=== PATIENT | female | born 1965 | race Caucasian/White ===

== ENCOUNTER → 2024-01-17 08:01 | Outpatient (BNVA) | payer OTHER, SELFPAY | PROVIDERS: PCP Family Medicine; Visit Provider Nurse Practitioner Family | DX: R53.83 Other fatigue (principal) | CPT/HCPCS: 80053; 83036; 84443; 85025 ==

== ENCOUNTER 2024-07-17 12:43 | Outpatient (CLI) | payer OTHER, SELFPAY ==
--- NOTE | 2024-07-17 13:00 | MM_ITS ---
WS: [id number] Bilateral screening 3D tomosynthesis digital mammogram, 07/17/2024 1:00 PM Clinical Data: Z12.31 - Encounter for screening mammogram for malignant ... Comparison: 06/22/2022 Findings: No spiculated masses or clustered calcifications are seen. There are no secondary signs of carcinoma . MM/MM scr BI tomosynthesis 14020 Impression: Negative bilateral mammogram unchanged. Recommend annual screening mammograms. BIRADS: 1 - Negative. FOLLOW UP: 1 Year Follow-up DENSITY: There are scattered areas of fibroglandular density. The CAD food and beverage checker was used
== END 2024-07-17 12:44 | disposition home or self-care (01) ==
LOC: RAD 12:44
PROVIDERS: PCP Family Medicine; Visit Provider Registered Nurse
DX: Z12.31 Encounter for screening mammogram for malignant neoplasm of breast (principal)
CPT/HCPCS: 77063; 77067

== ENCOUNTER → 2025-02-15 09:50 | Outpatient (BNVA) | payer OTHER, SELFPAY | PROVIDERS: PCP Registered Nurse; Visit Provider Registered Nurse | DX: I10 Essential (primary) hypertension (principal); Z13.6 Encounter for screening for cardiovascular disorders; Z13.1 Encounter for screening for diabetes mellitus; E04.9 Nontoxic goiter, unspecified | CPT/HCPCS: 80053; 80061; 83036; 84443; 85025 ==

== ENCOUNTER 2025-04-11 07:36 | Day surgery (SDC) | payer OTHER, SELFPAY ==
--- NOTE | 2025-04-11 08:11 | P.HPUD_ITS ---
Surgery/Procedure H&P Update DATE OF PROCEDURE: April 11, 2025 DATE H&P PERFORMED: 03/20/25 H&P UPDATE INFORMATION: I have reviewed H&P completed within last 30 days, I have examined patient prior to procedure, No changes to prior documentation, H&P is in [facility] EMR on date indicated and Risks and benefits of the procedure reviewed PLANNED PROCEDURE: Operation Date: 04/11/25 09:40 Proposed Procedures p Colonoscopy [id number] G0121, Z12.11(Not Applicable) - Philip Hollingsworth MD
[2025-04-11 08:16] VITALS: BP 158/98; PULSE 58; RESP 16; TEMP 36.2; O2SAT 97; BMI 36.5
--- NOTE | 2025-04-11 08:32 | ANES.PREANE2 ---
Pre-Anesthetic Assessment Height/Weight: Height 1.52 m Weight 84.822 kg Temp Pulse Resp BP Pulse Ox O2 Del Method 97.2 F L 58 L 16 158/98 97 Room Air 04/11/25 08:16 04/11/25 08:16 04/11/25 08:16 04/11/25 08:16 04/11/25 08:16 04/11/25 08:16 Operation Date: 04/11/25 09:40 Proposed Procedures p Colonoscopy [id number] G0121, Z12.11(Not Applicable) - Philip Hollingsworth MD Familial anesthetic complications: None Was Beta Ximena taken within 24 hours: N/A Was Clonidine taken within 24 hours: N/A Last intake: Intake Last Liquid Date 04/10/25 Last Liquid Time 20:30 Last Solid Date 04/09/25 Last Solid Time 19:30 Social No alcohol and No tobacco Exam alert, oriented x 3, clear to auscultation bilaterally and regular rate & rhythm Airway Mallampati: Class I Dentition: full Comments: Comments: R sided fever blister Metabolic Morbid Obesity and Thyroid Disease Anesthetic Plan ASA status: 2 Anesthesia: MAC Risk of > 500 ml blood loss (7ml/kg in children): No Medications/Allergies Home Medications ?Medication ?Instructions ?Recorded ?Confirmed ?Last Taken ?Type cholecalciferol (vitamin D3) 25 50 mcg PO DAILY 04/08/25 04/11/25 04/04/25 History mcg (1,000 unit) capsule (Vitamin D3) Elderberry 1,600 mg PO DAILY 04/11/25 04/11/25 04/04/25 History ascorbic acid (vitamin C) 1,000 mg 1,000 mg PO DAILY 04/11/25 04/11/25 04/04/25 History tablet (Vitamin C) garlic extract 500 mg capsule 1,000 mg PO DAILY 04/11/25 04/11/25 04/04/25 History krill 1,000 mg-omega-3 170 mg-dha 1 cap PO DAILY 04/11/25 04/11/25 04/04/25 History 50 mg-epa 80 sd-yoruns-pazrf capsule Allergies Allergy/AdvReac Type Severity Reaction Status Date / Time No Known Allergies Allergy Verified 04/11/25 08:18 Current Medications Generic Name Dose Route Start Last Admin Trade Name Freq PRN Reason Stop Dose Admin Sodium Chloride 1,000 mls @ 15 mls/hr 04/11/25 07:45 04/11/25 08:28 Sodium Chloride 0.9% IV 04/12/25 07:44 15 mls/hr .Q24H PRN Administration COLONOSCOPY FLUIDS PFSH Anesthesia Medical History Fatigue Family History Grandmother Diabetes Heart disease Sister Hyperthyroidism Mother Heart disease Social History Smoking and tobacco/nicotine status: never used tobacco/nicotine
--- NOTE | 2025-04-11 10:03 | PC.NURSE ---
[facility] [id number]
[2025-04-11 10:07] VITALS: BP 158/88; PULSE 72; RESP 10; TEMP 36.1; O2SAT 98
[2025-04-11 10:30] VITALS: BP 167/104; PULSE 61; RESP 17; O2SAT 99
--- NOTE | 2025-04-11 11:08 | PC.NURSE ---
[facility] [id number]
[2025-04-11 11:20] VITALS: BP 185/91; PULSE 59; RESP 16; O2SAT 99
--- NOTE | 2025-04-11 12:19 | ANE.PACU2 ---
Inpatient post-anesthesia follow up: Airway intact: Yes Vital signs: Temperature 97.0 F Pulse Rate 59 Respiratory Rate 16 Blood Pressure 185/91 Pulse Oximetry 99 Oxygen Delivery Me thod Room Air Oxygen Flow Rate Fraction of Inspir ed Oxygen Hydration adequate: Yes Nausea and vomiting: No Pain level: 1 Mental status: Baseline
== END 2025-04-11 11:27 | disposition home or self-care (01) ==
PROVIDERS: PCP Registered Nurse; Visit Provider Surgery
PROC: 0DJD8ZZ Inspection of Lower Intestinal Tract, Via Natural or Artificial Opening Endoscopic (ICD-10-PCS; CPT 45378; principal; 2025-04-11 09:40)
DX: Z12.11 Encounter for screening for malignant neoplasm of colon (principal); D12.8 Benign neoplasm of rectum; E66.01 Morbid (severe) obesity due to excess calories; Z68.36 Body mass index [BMI] 36.0-36.9, adult; E07.9 Disorder of thyroid, unspecified
CPT/HCPCS: 45380; 88305; J2704; J7030